=== PATIENT | male | born 1950 | race Caucasian/White ===

== ENCOUNTER 2016-12-25 13:21 | Emergency (ER) | payer OTHER ==
[2016-12-25 13:39] VITALS: TEMP 96
[2016-12-25] MEDS ORDERED: ALBUTEROL/IPRATROPIUM 1 VIAL SOL ONE (13:45)
[2016-12-25] MEDS ORDERED: SODIUM CHLORIDE 0.9% 1000ML 1,000 ML IV ONE ×2 (13:48→14:54)
[2016-12-25] MEDS ORDERED: ALBUTEROL/IPRATROPIUM 1 VIAL SOL INH ONE (13:50)
[2016-12-25] MEDS ORDERED: SODIUM CHLORIDE 0.9% FLUSH 10 ML SOL IV PRN (13:59)
[2016-12-25 14:09] LABS: BASOPHILS % (AUTO) 0 % (0-3); EOSINOPHILS % (AUTO) 1 % (0-9); HEMATOCRIT 46 % (39-53); MEAN CORPUSCULAR HGB CONC 32.8 gm/dl (32.0-36.0); MEAN CORPUSCULAR VOLUME 85 fL (80-100); MONOCYTES % (AUTO) 8.1 % (0-12); NEUTROPHILS % (AUTO) 74.2 % (37-80)
[2016-12-25 14:11] LABS: CALCIUM 8.8 mg/dl (8.5-10.1); POTASSIUM 3.6 mMol/L (3.5-5.1)
[2016-12-25] MEDS ORDERED: ASPIRIN 81 MG CHEWABLE CTB ONE (14:46)
[2016-12-25] MEDS ORDERED: ENOXAPARIN 100 MG SOL SC SCH (15:00)
[2016-12-25] MEDS ORDERED: ENOXAPARIN 30 MG SOL SC ONE (15:02)
[2016-12-25] MEDS ORDERED: ENOXAPARIN 100 MG SOL SC ONE (15:02)
[2016-12-25 17:07] VITALS: BP 84/69; PULSE 115; RESP 16; O2SAT 95
[2016-12-26] MEDS ORDERED: ASPIRIN EC 81 MG PO SCH (09:00)
== END 2016-12-25 16:34 | disposition short-term general hospital (02) ==
LOC: ED 13:21
DX: R55 Syncope and collapse (principal); R79.89 Other specified abnormal findings of blood chemistry; R94.31 Abnormal electrocardiogram [ECG] [EKG]; I48.91 Unspecified atrial fibrillation; I49.01 Ventricular fibrillation; R06.02 Shortness of breath
CPT/HCPCS: 36415; 71010; 71275; 80048; 83880; 84484; 85025; 85378; 93005; 99285; J1650; J7620; Q9967

== ENCOUNTER 2018-03-10 14:34 | Emergency (ER) | payer OTHER, MEDICARE ==
[2018-03-10 14:35] VITALS: O2SAT 95
[2018-03-10 15:02] VITALS: BP 129/90; PULSE 87; RESP 18; TEMP 96.9
== END 2018-03-10 15:50 | disposition home or self-care (01) ==
LOC: ED 14:34
DX: S62.661A Nondisplaced fracture of distal phalanx of left index finger, initial encounter for closed fracture (principal); S60.122A Contusion of left index finger with damage to nail, initial encounter
CPT/HCPCS: 11740; 73140; 99282